=== PATIENT | male | born 2000 | race Caucasian/White ===

== ENCOUNTER 2022-07-24 21:17 | Emergency (ER) | payer OTHER ==
[~2022-07-24] VITALS: Ht 170.2 cm; Wt 63.5 kg
[2022-07-24 22:05] VITALS: BP 131/90
[2022-07-24] MEDS ORDERED: LIDOCAINE/EPI 2% 1:100000 20 ML VIAL INJ ONE (23:35)
[2022-07-25] MEDS ORDERED: CLIN300C2 PO (00:10)
--- NOTE | 2022-07-25 00:17 | NUR ---
PATIENT SEEN AND ASSESSED BY MILTON MONCADA. Written and verbal after care instructions given and explained. Patient verbalized understanding. Ambulatory with steady gait. All questions addressed prior to discharge. Advised to follow up with PMD.
== END 2022-07-25 00:17 | disposition home or self-care (01) ==
LOC: MED 21:17
DX: R22.42 Localized swelling, mass and lump, left lower limb (principal); M79.662 Pain in left lower leg
CPT/HCPCS: 10120; 73650; 99284; J2001

== ENCOUNTER 2022-07-28 15:33 | Emergency (ER) | payer OTHER ==
[~2022-07-28] VITALS: Ht 165.1 cm; Wt 74.8 kg
[~2022-07-28 15:33] MED LIST: CLIN300C2 PO
[2022-07-28 15:49] VITALS: BP 140/76
--- NOTE | 2022-07-28 17:54 | NUR ---
PT AMBULATED TO ER BED 5
[2022-07-28] MEDS ORDERED: LIDOCAINE/EPI 2% 1:100000 20 ML VIAL INJ ONE (17:55)
[2022-07-28 19:16] VITALS: BP 140/76
== END 2022-07-28 19:17 | disposition home or self-care (01) ==
LOC: MED 15:33
DX: S90.852A Superficial foreign body, left foot, initial encounter (principal); X58.XXXA Exposure to other specified factors, initial encounter; Y93.89 Activity, other specified; Y92.89 Other specified places as the place of occurrence of the external cause; Y99.8 Other external cause status
CPT/HCPCS: 10120; 99284; J2001